=== PATIENT | male | born 1955 | race Caucasian/White ===

== ENCOUNTER 2024-11-23 01:43 | Day surgery (SDC) | payer MEDICARE, SELFPAY ==
--- OUTSIDE RECORDS SUMMARY | 2007-11-28 03:15 | XMS_ITS | Continuity of Care Document ---
Author Organization [facility] Address [id number] [place] [address] [address] [place] [address] Phone Care Team Providers Care Grey Goods Tester Name Role Phone Ramsay OD, Jefry Unavailable Unavailable Procedures Procedure Date Eye Exam & Treatment Refraction Eye Exam, New Patient Refraction Advance Directives Directive Yes / No Effective Date File Name No Information Encounters Encounter Description Practice Location Reason(s) For Visit Diagnoses Date Provider Providers Copied on Encounter [facility], [address] [place] [address] [address], [place], [place], [id number], tel:[phone] [facility] No Information Nov- 7-200 8 Ramsay OD Jefry. [address] , [address], [place], [place], [facility], . tel:[phone] [facility], [address] [place] [address] [address], [place], [place], [id number], tel:[phone] [facility] No Information May- 1-200 7 Ramsay OD Jefry. [address] , [address], [place], [address], [place]. tel:[phone] Family History Family Member Type Diagnosis Age At Onset No Information Payers Payer name Insurance type Covered libertarian ID Authoriza tion(s) No Information Social History Type Description Quantity Date Captured Comments Sex Male Smoking Status No Information Chief Complaint And Reason For Visit No Information Reason For Referral Reason For Referral No Information History Of Present Illness Encounter Date Complaint History Of Prese nt Illness No Information Functional Status Date Functional Assessmen t No Information Instructions Date Instruction Additional Infor mation No Information Assessments Type Assessment Date No Information Patient Care Teams Name Effective Dates (start - stop) Status Members No Information
--- OUTSIDE RECORDS SUMMARY | 2023-06-02 02:30 | XMS_ITS ---
Author Organization [facility] Address [address] [place] [address] [place] [address] Care Team Providers Care Gas Fitter Name Role Phone Luis Gomes Primary Care Provider Amari Campbell Unavailable [phone] WILDER ARIAS, PRINCESS Unavailable Unavailable REASON FOR VISIT Right Knee Pain MEDICATIONS Medication SIG (Take, Route, Frequency, Duration) Notes Start Date End Date Status Levothyroxine Sodium 175 MCG Oral for 90 Active VITAL SIGNS Blood pressure systolic 160 mm Hg 06/02/19 24 Blood pressure diastolic 95 mm Hg 024 Heart Rate 73 /min 06/02/2023 Respiratory Rate 16 /min 06/02/2023 Height 6 ft 2 in in 06/02/2023 Weight 286 lbs 06/02/2023 BMI 36.72 kg/m2 06/02/2023 Encounters Encounter Location Date Provider Diagnosis [facility] [address] [place] [address] [place] [address] 06/02/2023 Amari Guzmán Unilateral primary osteoarthritis, right knee M17.11 ASSESSMENTS Encounter Date Diagnosis Assessment Notes Treatment Notes Treatment Clinical Notes Section Notes 06/02/2023 Unilateral primary osteoarthritis, right knee (ICD-10 - M17.11) 06/02/2023 Other Jennifer Perez was present for the entire interview and physical examination, acting as a scribe for Dr. Amari Guzmán. Some of the above chart information was entered by Jennifer Perez. Dr. Guzmán has reviewed and agrees with this portion of the documentation. The remainder of the above note was dictated by Dr. Guzmán using voice recognition software and therefore inadvertent errors may have occurred. As a result, this note may not represent a completely accurate interpretation of the intended dictation provided. PLAN OF TREATMENT Treatment Notes Assessment Notes Other Jennifer Perez was present for the entire interview and physical examination, acting as a scribe for Dr. Amari Guzmán. Some of the above chart information was entered by Jennifer Perez. Dr. Guzmán has reviewed and agrees with this portion of the documentation. The remainder of the above note was dictated by Dr. Guzmán using voice recognition software and therefore inadvertent errors may have occurred. As a result, this note may not represent a completely accurate interpretation of the intended dictation provided. Next Appt Details Follow Up: 2 Weeks OPV, Reas on: Procedure Notes * Category Sub-Category Detail Notes Knee Joint Injection Under Fluoroscopy Location: Right Anesthesia: Local without IV sed ation Operative Technique: After the risks, be nefits, alternative treatments and potential complications related to the procedure were discussed and informed consent was obtained, the patient was placed in the supine position on the fluoroscopy table. Standard ASA monitors were applied. The anterior surface of the right knee was prepped and draped in the usual sterile fashion with chlorhexidine 2%/IPA 70%. The tibial and femoral surfaces of the selected knee joint were identified under live AP x-ray guidance. A 25-gauge 1.5 inch needle was inserted in a gun barrel fashion under fluoroscopic guidance. The subcutaneous structures were anesthetized with 3 mL of 1% lidocaine during needle placement. The needle tip was placed into the joint. After negative aspiration, 2 mL of Omnipaque 240 contrast dye was injected showing good spread within the joint. There were no filling defects. Contrast spread normally without obstruction. A solution of 10 mg of Preservative-Free Dexamethasone (10 mg/mL), plus 2 mL of 0.25% PF bupivacaine was mixed and after negative aspiration 3 mL of this solution was injected into the joint. The needle was removed, the skin was cleaned and a band-aid was placed over the puncture site. The patient tolerated the procedure well, was able to ambulate without new difficulty and was monitored for 20 minutes. The patient remained hemodynamically and neurologically stable. No apparent complications were observed. Post-operative instructions were reviewed with the patient. The patient was then discharged home in good condition with a food service driver. X-ray time: 5 seconds Progress Notes * Examination Category Sub-Category Detail Notes Category Not es Examination/ Pre-Anesthesia Assessment General: The patient is alert and oriented X 3 in moderate distress secondary to pain HEENT: Normocephalic, atrau matic. PERRL. The oropharynx is clear Neck: There is full range of motion of the cervical spine Heart: Regular rate and rhy thm Chest: Clear to auscultatio n bilaterally Abdomen: Soft and benign with normal bowel sounds throughout Musculoskeletal and Extremities: There i s tenderness to palpation over the bilateral L2-3 through L5-S1 facet joints. Extension and lateral rotation of the lumbar spine reproduces the patient's typical axial low back pain. There is diffuse tenderness palpation about the bilateral knee joints and crepitus with range of motion testing Neurological: There are no focal s trength deficits in the bilateral upper and lower extremities Skin: Clean, dry and intac t Psychiatric: Mood and affect are normal History and Physical Notes * HPI (History of Present Illness) Category Sub-Category Detail Notes Category Not es Pain Management Radiographic Imaging X-ray of th e bilateral knees done on 09/23/22 shows fairly advanced a valgus type degenerative joint disease of the right knee. There is a left total knee arthroplasty in anatomic alignment Assessment and Follow-up: Follow-up Plan documeandre gurpreet:: Yes [facility] Quality 2020: [facility] Documented:: Compliant
--- OUTSIDE RECORDS SUMMARY | 2023-06-30 02:30 | XMS_ITS ---
Author Organization [facility] Address [address] [place], [place] [address] [address] Care Team Providers Care Corporate Associate Attorney Name Role Phone Luis Gomes Primary Care Provider Amari Campbell Unavailable [phone] PRINCESS HDZ MD Unavailable Unavailable ALLERGIES No Known Allergies REASON FOR VISIT follow up MEDICATIONS Medication SIG (Take, Route, Frequency, Duration) Notes Start Date End Date Status Levothyroxine Sodium 175 MCG Oral for 90 Active Encounters Encounter Location Date Provider Diagnosis [facility] [address] [place] [address] [place] [address] 06/30/2023 Amari Guzmán Pain in left knee M25.562 ; Unilateral primary osteoarthritis, right knee M17.11 ; Pain in right knee M25.561 ; Radiculopathy, lumbar region M54.16 and Postlaminectomy syndrome, not elsewhere classified M96.1 ASSESSMENTS Encounter Date Diagnosis Assessment Notes Treatment Notes Treatment Clinical Notes Section Notes 06/30/2023 Pain in left knee (ICD-10 - M25.562) 06/30/2023 Unilateral primary osteoarthritis, right knee (ICD-10 - M17.11) 06/30/2023 Pain in right knee (ICD-10 - M25.561) 06/30/2023 Radiculopathy, lumbar region (ICD-10 - M54.16) 06/30/2023 Postlaminectomy syndrome, not elsewhere classified (ICD-10 - M96.1) 06/30/2023 Other The above-named patient was evaluated in conjunction with Dr. Guzmán. I have discussed and reviewed all of the pertinent history, physical examination findings and diagnostic imaging results with him. As a result of our discussion, Dr. Guzmán has determined the above assessment and directed the treatment plan. This note was dictated using voice recognition software and therefore inadvertent errors may have occurred. This note was dictated by TAMI Francisco PLAN OF TREATMENT Treatment Notes Assessment Notes Other The above-named kasandra ent was evaluated in conjunction with Dr. Guzmán. I have discussed and reviewed all of the pertinent history, physical examination findings and diagnostic imaging results with him. As a result of our discussion, Dr. Guzmán has determined the above assessment and directed the treatment plan. This note was dictated using voice recognition software and therefore inadvertent errors may have occurred. This note was dictated by TAMI Francisco Progress Notes * Examination Category Sub-Category Detail [...] anatomic alignment Assessment and Follow-up: Follow-up Plan documen gurpreet:: Yes [facility] Quality 2020: [facility] Documented:: Compliant
--- OUTSIDE RECORDS SUMMARY | 2023-10-28 09:15 | XMS_ITS ---
Author Organization [facility] Address [address] [facility] [place] [address] Care Team Providers Care Textile Stylist Name Role Phone Luis Gomes Primary Care Provider UnavailAmari Riley Unavailable [phone] WILDER ARIAS, PRINCESS Unavailable Unavailable ALLERGIES No Known Allergies REASON FOR VISIT Follow Up, Right Knee Pain MEDICATIONS Medication SIG (Take, Route, Frequency, Duration) Notes Start Date End Date Status Levothyroxine Sodium 175 MCG Oral for 90 Active VITAL SIGNS Blood pressure systolic 145 mm Hg 10/28/19 24 Blood pressure diastolic 94 mm Hg 024 Heart Rate 69 /min 10/28/2023 Respiratory Rate 18 /min 10/28/2023 Height 6 ft 2 in in 10/28/2023 Weight 286 lbs 10/28/2023 BMI 36.72 kg/m2 10/28/2023 Encounters Encounter Location Date Provider Diagnosis [facility] [address] [facility] [place] [address] 10/28/2023 Amari Guzmán Pain in left knee M25.562 ; Unilateral primary osteoarthritis, right knee M17.11 ; Pain in right knee M25.561 ; Radiculopathy, lumbar region M54.16 and Postlaminectomy syndrome, not elsewhere classified M96.1 ASSESSMENTS Encounter Date Diagnosis Assessment Notes Treatment Notes Treatment Clinical Notes Section Notes 10/28/2023 Pain in left knee (ICD-10 - M25.562) 10/28/2023 Unilateral primary osteoarthritis, right knee (ICD-10 - M17.11) Schedule a right knee joint steroid injection. The risks of this procedure including pain, bleeding, infection, nerve damage, insomnia, hyperglycemia, hair loss, muscle atrophy, skin depigmentation, weight gain, fluid retention, adrenal suppression, immunosuppressio n, osteoporosis resulting in fractures, avascular necrosis of the hip, cataracts, bleeding gastric ulcer, worsening pain and failure to relieve pain were discussed and the patient is agreeable to proceeding at this time. 10/28/2023 Pain in right knee (ICD-10 - M25.561) 10/28/2023 Radiculopathy, lumbar region (ICD-10 - M54.16) 10/28/2023 Postlaminectomy syndrome, not elsewhere classified (ICD-10 - M96.1) 10/28/2023 Other The above-named patient was evaluated in [...] PLAN OF TREATMENT Treatment Notes Assessment Notes Unilateral primary osteoarth ritis, right knee Schedule a right knee joint steroid injection. The risks of this procedure including pain, bleeding, infection, nerve damage, insomnia, hyperglycemia, hair loss, muscle atrophy, skin depigmentation, weight gain, fluid retention, adrenal suppression, immunosuppression, osteoporosis resulting in fractures, avascular necrosis of the hip, cataracts, bleeding gastric ulcer, worsening pain and failure to relieve pain were discussed and the patient is agreeable to proceeding at this time. Other The above-named kasandra ent was evaluated [...] This note was dictated by TAMI Francisco Next Appt Details Follow Up: right knee joint steroid injection, Reason: Progress Notes * Examination Category Sub-Category Detail [...] and Follow-up: Follow-up Plan documeandre gurpreet:: Yes [facility] Quality 2020: [facility]IPS Documented:: Compliant
--- OUTSIDE RECORDS SUMMARY | 2023-11-11 03:30 | XMS_ITS ---
Author Organization [facility] Address [address] [facility] [address] [place] [address] Care Team Providers Care Packaging Clerk Name Role Phone Luis Gomes Primary Care Provider UnavailAmari Riley Unavailable [phone] PRINCESS HDZ MD Unavailable Unavailable REASON FOR VISIT Right Knee Pain MEDICATIONS Medication SIG (Take, Route, Frequency, Duration) Notes Start Date End Date Status Levothyroxine Sodium 175 MCG Oral for 90 Active VITAL SIGNS Blood pressure systolic 167 mm Hg 11/11/19 24 Blood pressure diastolic 83 mm Hg 024 Heart Rate 77 /min 11/11/2023 Respiratory Rate 16 /min 11/11/2023 Height 6 ft 2 in in 11/11/2023 Weight 286 lbs 11/11/2023 BMI 36.72 kg/m2 11/11/2023 Encounters Encounter Location Date Provider Diagnosis [facility] [address] [facility] [place] [address] 11/11/2023 Amari Guzmán Unilateral primary osteoarthritis, right knee M17.11 ASSESSMENTS Encounter Date Diagnosis Assessment Notes Treatment Notes Treatment Clinical Notes Section Notes 11/11/2023 Unilateral primary osteoarthritis, right knee (ICD-10 - M17.11) PLAN OF TREATMENT Next Appt Details Follow Up: 2 Weeks [...] The needle tip was placed into the right knee joint. A solution of 10 mg of Preservative-Free [...] discharged home in good condition with a commercial front load driver. X-ray time: 4 seconds Progress Notes * Examination Category Sub-Category [...] and Follow-up: Follow-up Plan documen gurpreet:: Yes [facility] Quality 2020: [facility] Documented:: Compliant
[2024-11-09 09:42] VITALS: BMI 33.0
--- OUTSIDE RECORDS SUMMARY | 2024-11-23 01:47 | XMS_ITS | Patient Health Record ---
Author Organization [facility] Address [address] [place] [address] [place] [address] Care Team Providers Care Data Base Design Analyst Name Role Phone Luis Gomes Primary Care Provider Unavaila Amari Jack Unavailable [phone] PRINCESS HDZ MD Unavailable Unavailable ALLERGIES No Known Allergies REASON FOR REFERRAL No Information MEDICATIONS Medication SIG (Take, Route, Frequency, Duration) Notes Start Date End Date Status Levothyroxine Sodium 175 MCG Oral for 90 Active PROBLEMS Problem Type ICD Code Onset Dates Problem Status W/U Status Risk SNOMED Code Notes Problem Unilateral primary osteoarthritis, right knee (M17.11) Active confirmed Primary osteoarthritis (620849459) Problem Pain in right knee (M25.561) Active confirmed Pain of right knee region (finding) (205586206487489) Problem Pain in left knee (M25.562) Active confirmed Pain of left kn ee joint (finding) (977894923913542) Problem Radiculopathy, lumbar region (M54.16) Active confirmed Lumbar radiculopathy (820949696) Problem Postlaminectomy syndrome, not elsewhere classified (M96.1) Active confirmed Post-lami nectomy syndrome (02351142) PLAN OF TREATMENT No Information Insurance Providers Payer Name Payer Address Payer Phone Subscriber Number Group Number Insured Name Patient Relationship to Insured Coverage Start Date Coverage End Date Medicare [place] [address] [address] [place] [address] [id number] LINDA HOFFMAN Self - patient is the insured [employer] MEDICARE [address] [facility] [place] [address] [id number] LINDA HOFFMAN Self - patient is the insured MEDICAL (GENERAL) HISTORY Surgical History Surgery Date(Month/Year) Lumber discectomy--Dr. Tono Lea (L 4-5) 1994 Left Achilles tendon repair 2019 Left total knee arthroplasty--Dr. Hdz Hospitalization History Reason Date(Month/Year) SEE SURGERIES ABOVE
[2024-11-23 07:15] VITALS: BP 133/71; PULSE 63; RESP 18; TEMP 36.2; O2SAT 96
[2024-11-23] MEDS: LACTATED RINGERS 1,000 ML 150 ML IV CONT (07:23)
--- NOTE | 2024-11-23 08:22 | P.PNAN_ITS ---
Anes - Initial Pre Proc Eval Procedure: Operation Date: 11/23/24 08:30 Proposed Procedures p Screening Colonoscopy - Clayton Yap MD Date/Time: 11/23/24 08:22 Surgeon: Clayton Yap MD Pre Op Diagnosis: Encounter for screening for malignant neoplasm of Patient Data Age: 68 Gender: M Height: 1.93 m Weight: 118.8 kg Last Vital Signs Temp 97.2 F L 11/23/24 07:15 Pulse 63 11/23/24 07:15 Resp 18 11/23/24 07:15 BP 133/71 11/23/24 07:15 Pulse Ox 96 11/23/24 07:15 O2 Del Method Room Air 11/23/24 07:15 Allergies Allergy/AdvReac Type Severity Reaction Status Date / Time No Known Allergies Allergy Verified 11/23/24 07:14 Home Medications ?Medication ?Instructions ?Recorded ?Confirmed ?Type cyclobenzaprine 10 mg tablet 10 mg PO .QHS PRN muscle spasm #30 09/05/22 11/09/24 Rx tabs levothyroxine 175 mcg tablet 175 mcg PO DAILY #90 tabs 05/26/24 11/23/24 Rx nebivolol 5 mg tablet (Bystolic) 5 mg PO DAILY #90 tab s 09/22/24 11/23/24 Rx Patient hx anesthesia problems: none Family hx anesthesia problems: none Results Review: All pre-operative results and documents have been reviewed as part of the pre- operative evaluation. [facility] Past Medical History Medical History Encounter for routine adult health examination without abnormal findings Primary osteoarthritis of left knee On assisted drug therapy Colon cancer screening Abnormal glucose level Degenerative arthritis of knee, bilateral BMI 33.0-33.9,adult Broken foot Surgical History Surgical History History of back surgery lumbar diskectomy H/O Achilles tendon repair Left side 2019 Family History Family History Father Family history of Parkinson's disease Family history of diabetes mellitus in first degree relative Social History Social History Years smoked: 2 Smoking status: Former smoker Second hand tobacco smoke exposure: No Alcohol intake: current Drinks per week: 2 Substance use: unknown Current Housing: Decline to Answer Concerned About Future Housing: Decline to Answer Difficulty Paying Gas/Electric Bills: Decline to Answer Difficulty Paying for Meds: Decline to Answer Currently Unemployed: Decline to Answer Education: Decline to Answer Difficulty w/ Childcare or Family Care: Decline to Answer Living arrangements: with family Occupation/Education: retired Gender identity (if verbalized by the patient): Male Spiritual care concerns: No Anes - Eval Final PreProcedure Day of Procedure 11/23/24 08:22 Patient weight: obese Lungs: normal air movement Airway: Mallampati scale class II Neurological: alert and oriented Last oral intake: >/= 8 hours ASA classification: II Emergent: no Anesthetic plan: proceed Anesthesia type and monitoring: general GIVS and standard monitoring Results Review: All pre-operative results and documents have been reviewed as part of the pre- operative evaluation. BMI 31, hypothyroidism, HTN. Informed Consent: The patient's anesthetic plan and its attendant risks and benefits were discussed with the patient/family/POA. Questions were solicited and answers provided to the satisfaction of the patient/family/POA.
--- NOTE | 2024-11-23 08:38 | P.HP_ITS ---
H&P: HPI History of Present Illness Date/Time: 11/23/24 08:38 Chief Complaint: Screening colonoscopy Narrative: This is the patient's first colonoscopy after 10 years.. There are no GI symptoms and there is no family history of colorectal cancer. Review of Systems Review of Systems: All systems reviewed & are unremarkable except as noted in HPI and below PMFSH Past Medical History Medical History (Updated 11/23/24 @ 08:39 by Clayton Yap MD) Encounter for routine adult health examination without abnormal findings Primary osteoarthritis of left knee On terminal gauger supervisor drug therapy Colon cancer screening Abnormal glucose level Degenerative arthritis of knee, bilateral BMI 33.0-33.9,adult Broken foot Surgical History Surgical History History of back surgery lumbar diskectomy H/O Achilles tendon repair Left side 2019 Family History Family History Father Family history of Parkinson's disease Family history of diabetes mellitus in first degree relative Social History Social History Years smoked: 2 Smoking status: Former smoker Second hand tobacco smoke exposure: No Alcohol intake: current Drinks per week: 2 Substance use: unknown Current Housing: Decline to Answer Concerned About Future Housing: Decline to Answer Difficulty Paying Gas/Electric Bills: Decline to Answer Difficulty Paying for Meds: Decline to Answer Currently Unemployed: Decline to Answer Education: Decline to Answer Difficulty w/ Childcare or Family Care: Decline to Answer Living arrangements: with family Occupation/Education: retired Gender identity (if verbalized by the patient): Male Spiritual care concerns: No Meds Home Medications and Allergies Home Medications ?Medication ?Instructions ?Recorded ?Confirmed ?Type cyclobenzaprine 10 mg tablet 10 mg PO .QHS PRN muscle spasm #30 09/05/22 11/09/24 Rx tabs levothyroxine 175 mcg tablet 175 mcg PO DAILY #90 tabs 05/26/24 11/23/24 Rx nebivolol 5 mg tablet (Bystolic) 5 mg PO DAILY #90 tab s 09/22/24 11/23/24 Rx Allergies Allergy/AdvReac Type Severity Reaction Status Date / Time No Known Allergies Allergy Verified 11/23/24 07:14 Vital Signs Vital Signs - 24 hr 11/23/24 07:15 Temperature 97.2 F L Pulse Rate 63 Respiratory Rate 18 Blood Pressure 133/71 Pulse Oximetry 96 Oxygen Delivery Room Air Exam Const: General: cooperative and healthy appearing Resp: Effort & Inspection: normal respiratory effort and able to speak in complete sentences Auscultation: clear to auscultation bilaterally Cardio: Rate: regular rate Rhythm: regular rhythm GI: Inspection: normal to inspection GI Palp: No No hepatosplenomegaly present Auscultation: normal bowel sounds Rectal Exam: deferred Skin: General skin exam: normal color Psych: Appearance: grossly normal Mental Status: mental status grossly normal Assessment and Plan Assessment and plan (1) Colon cancer screening: Code(s): Z12.11 - Encounter for screening for malignant neoplasm of colon Status: Acute Assessment and Plan: The patient is deemed a good candidate for the procedure. Consent signed. Will proceed.
[2024-11-23 09:02] VITALS: BP 139/63; PULSE 86; RESP 15; O2SAT 96
[2024-11-23 09:12] VITALS: BP 130/62; PULSE 60; RESP 18; O2SAT 99
[2024-11-23 09:22] VITALS: BP 143/80; PULSE 62; RESP 20; O2SAT 99
== END 2024-11-23 09:35 | disposition home or self-care (01) ==
PROVIDERS: PCP Internal Medicine; Referring Provider Internal Medicine Gastroenterology; Visit Provider Internal Medicine Gastroenterology
PROC: 0DJD8ZZ Inspection of Lower Intestinal Tract, Via Natural or Artificial Opening Endoscopic (ICD-10-PCS; CPT 45378; principal; 2024-11-23 08:30)
DX: Z12.11 Encounter for screening for malignant neoplasm of colon (principal); K64.8 Other hemorrhoids; K57.30 Diverticulosis of large intestine without perforation or abscess without bleeding; E03.9 Hypothyroidism, unspecified; I10 Essential (primary) hypertension; M17.0 Bilateral primary osteoarthritis of knee; E66.9 Obesity, unspecified; Z68.31 Body mass index [BMI] 31.0-31.9, adult; Z79.899 Other long term (current) drug therapy; Z98.890 Other specified postprocedural states; Z98.1 Arthrodesis status; Z87.891 Personal history of nicotine dependence
CPT/HCPCS: G0121; J2003; J2704; J7120